=== PATIENT | female | born 1985 | race Hispanic/Latino ===

== ENCOUNTER → 2019-09-18 | Outpatient (CLI) | payer OTHER ==
[~2019-09-18] MED LIST: AZITHROMYCIN250 MG PO; FAMOTIDINE20 MG PO
--- OUTSIDE RECORDS SUMMARY | 2019-09-18 13:37 | XMS REPORT ---
Author [facility] Address Unknown Phone Unavailable Care Team Providers Care Night Nurse Name Role Phone Frank MATUTE Unavailable Unavailable Problems This patient has no known problems. Allergies, Adverse Reactions, Alerts This patient has no known allergies or adverse reactions. Medications This patient has no known medications. Results Test Description Test Time Test Comments Text Results Atomic Results Result Comments CXR 2 VIEW - HOPD 2019-09-13 12:48:00 [place] [address] Patient Name: AYAD GARCIA MR #: [id number] : 1985 Age/Sex: 34/F Req #: [id number] Adm Physician: Ordered by: GOPAL MATUTE MD Report #: [id number] Location: [facility] Room/Bed: Procedure: [id number] HOPD/CXR 2 VIEW - HOPD Exam Date: 09/13/19 Exam Time: 1243 REPORT STATUS: Signed EXAMINATION: CXR 2 VIEW - HOPD INDICATION: Chest pain COMPARISON: None FINDINGS: LINES/TUBES:None LUNGS:The lungs are well-inflated. No focal consolidation or pulmonary edema. PLEURA:No pleural effusion or pneumothorax. MEDIASTINUM:The cardiomediastinal silhouette appears normal in size and shape. BONES/SOFT TISSUES:No acute osseous injury. ABDOMEN:No free air under the diaphragm. IMPRESSION: No focal pneumonia or pulmonary edema. Signed by: Manjeet Nava MD on 09/13/2019 12:49 PM Dictated By: MANJEET NAVA MD [id number] Transcribed By: Yves CULLEN on 09/13/191248 COPY TO: GOPAL MATUTE MD
== END | disposition home or self-care (01) ==
LOC: DX 05:00 → OR 13:35 → LAB 13:35 → ENDO 13:35 → EDSTATUS 15:30
PROVIDERS: ATTEND Internal Medicine Gastroenterology
DX: R11.0 Nausea (principal); K21.9 Gastro-esophageal reflux disease without esophagitis; Z01.818 Encounter for other preprocedural examination; Z53.8 Procedure and treatment not carried out for other reasons
CPT/HCPCS: 36415; 43239; 81025; 84702